=== PATIENT | female | born 1985 | race American Indian/Alaskan Native ===

== ENCOUNTER 2017-03-20 14:12 | Emergency (ER) | payer SELFPAY ==
[2017-03-20 16:25] LABS: Hematocrit 42.6 % (30.3-42.9); Hemoglobin 14.6 gm/dl (10.1-14.3); Mean Corpuscular HGB Conc 34 % (30-34); Mean Corpuscular Hemoglobin 31 pg (28-32); Mean Corpuscular Volume 90 fl (79-97); Platelet Count 270 K/mm3 (140-440); Red Blood Count 4.76 M/mm3 (3.65-5.03); Red Cell Distribution Width 13.1 % (13.2-15.2); White Blood Count 7.3 K/mm3 (4.5-11.0)
[2017-03-20 16:47] LABS: Alanine Aminotransferase 9 units/L (7-56); Albumin 4.6 g/dL (3.9-5); Albumin/Globulin Ratio 1.4 %; Alkaline Phosphatase 96 units/L (35-129); Anion Gap 17 mmol/L; Blood Urea Nitrogen 7 mg/dL (7-17); Calcium 9.7 mg/dL (8.4-10.2); Carbon Dioxide 26 mmol/L (22-30); Chloride 98.6 mmol/L (98-107); Glucose 92 mg/dL (65-100); Lipase 12 units/L (13-60); Potassium 3.9 mmol/L (3.6-5.0); Sodium 138 mmol/L (137-145); Total Protein 7.8 g/dL (6.3-8.2)
[2017-03-20 17:33] LABS: Bilirubin,Urine NEG (Negative); Blood,Urine NEG (Negative); Ketones,Urine NEG (Negative); Leukocyte Esterase,Urine NEG (Negative); Nitrite,Urine NEG (Negative); Protein,Urine <15 mg/dL mg/dL (Negative); RBC,Urine < 1.0 /HPF (0.0-6.0); Urobilinogen,Urine < 2.0 mg/dL (<2.0)
[2017-03-20 18:00] LABS: Basophils % (Manual) 0 % (0.0-1.8); Blastocytes % (Manual) 0 %; Eosinophils % (Manual) 0 % (0.0-4.3)
[2017-03-20 18:01] LABS: Diff Status Complete; Platelet Estimate Consistent w Auto; RBC Morphology Normal
[2017-03-20] MEDS ORDERED: TORADOL IM ONE (22:31)
[2017-03-20] MEDS ORDERED: PERCOCET 5/325 PO ONE (22:31)
--- NOTE | 2017-03-20 23:05 | Emergency Department Report ---
HPI - General Chief Complaint: Abdominal Pain Time Seen by Provider: 03/20/17 22:16 - HPI HPI: This is a 32-year-old Afro[place] female presents to the emergency department with complaint of right hip pain and swelling that has been going on for almost the past year intermittently. This is a chronic issue for her but when the pain is real bad she says that it causes some pain towards the abdomen and also causes diarrhea. The patient feels very confident that this is due to her hip pain. She's been taking ibuprofen 600 twice a day for this discomfort. She denies any fever, nausea, vomiting, back pain, dysuria, vaginal bleeding or discharge. She has a appointment with an STATISTICAL CONSULTANT coming up but does not have a primary care doctor as she just "moved back rate" no recent travel or sick contacts at home. She has a past surgical history of 3, tubal ligation and partial hysterectomy. ED Past Medical Hx - Past Medical History Hx Asthma: Yes - Surgical History Additional Surgical History: X 3. TUBAL LIGATION. PARTIAL HYSTERECTOMY - Social History Smoking Status: Never Smoker Substance Use Type: None - Medications Home Medications: Home Medications Medication Instructions Recorded Confirmed Last Taken Type ALBUTEROL Inhaler [ProAir HFA 2 puff IH QID PRN #1 inhalation 11/16/16 03/20/17 Unknown Rx Inhaler] HYDROcodone/APAP 5-325 [[place] 1 each PO Q6HR PRN #12 tablet 03/21/17 Unknown Rx 5/325] ED Review of Systems ROS: Stated complaint: PAIN AND SWELLING IN RT HIP Other details as noted in HPI Comment: All other systems reviewed and negative Constitutional: denies: chills, fever Eyes: denies: eye pain, eye discharge, vision change ENT: denies: ear pain, throat pain Respiratory: denies: cough, shortness of breath, wheezing Cardiovascular: denies: chest pain, palpitations Gastrointestinal: abdominal pain, diarrhea. denies: nausea, vomiting Genitourinary: denies: urgency, dysuria, discharge Musculoskeletal: joint swelling, arthralgia. denies: back pain Skin: denies: rash, lesions Neurological: denies: headache, weakness, paresthesias Physical Exam - Physical Exam Vital Signs: Vital Signs 03/20/17 03/20/17 03/20/17 15:53 21:58 21:59 Temperature 98.5 F Pulse Rate 66 74 64 Respiratory 18 17 16 Rate Blood Pressure 126/87 O2 Sat by Pulse 100 Oximetry 03/20/17 03/20/17 03/20/17 22:00 22:01 22:02 Temperature Pulse Rate 73 67 73 Respiratory 14 14 13 Rate Blood Pressure 124/65 124/65 124/65 O2 Sat by Pulse 100 100 Oximetry 03/20/17 22:11 Temperature Pulse Rate Respiratory 18 Rate Blood Pressure O2 Sat by Pulse 98 Oximetry Physical Exam: GENERAL: The patient is well-developed well-nourished. HEENT: Normocephalic. Atraumatic. Extraocular motions are intact. Patient has moist mucous membranes. Pupils equal reactive to light bilaterally. NECK: Supple. Trachea is midline. CHEST/LUNGS: Clear to auscultation. There is no respiratory distress noted. HEART/CARDIOVASCULAR: Regular. There is no tachycardia. There is no gallop rub or murmur. ABDOMEN: Abdomen is soft. Nontender to palpation. Unable to reproduce tenderness to palpation. Patient has normal bowel sounds. There is no abdominal distention. SKIN: Skin is warm and dry. NEURO: The patient is awake, alert, and oriented. The patient is cooperative. The patient has no focal neurologic deficits. The patient has normal speech. MUSCULOSKELETAL: There is tenderness to palpation to the right lateral hip as well as the circumferential right proximal thigh however there is no obvious deformity. There is no limitation range of motion. There is no evidence of acute injury. ED Course Vital Signs 03/20/17 03/20/17 03/20/17 15:53 21:58 21:59 Temperature 98.5 F Pulse Rate 66 74 64 Respiratory 18 17 16 Rate Blood Pressure 126/87 O2 Sat by Pulse 100 Oximetry 03/20/17 03/20/17 03/20/17 22:00 22:01 22:02 Temperature Pulse Rate 73 67 73 Respiratory 14 14 13 Rate Blood Pressure 124/65 124/65 124/65 O2 Sat by Pulse 100 100 Oximetry 03/20/17 22:11 Temperature Pulse Rate Respiratory 18 Rate Blood Pressure O2 Sat by Pulse 98 Oximetry ED Medical Decision Making - Lab Data Result diagrams: 03/20/17 16:03 03/20/17 16:03 - Radiology Data Radiology results: image reviewed interpreted by me: Abdominal x-ray shows nonspecific nonobstructive bowel gas. X-ray of the right hip does not show any fracture, dislocation or any acute process. - Medical Decision Making 32-year-old female presents to the emergency department with acute on chronic right hip and thigh pain. No obvious deformity seen. X-rays were done of the hip and abdomen without any acute process. Patient's labs are unremarkable. She was given a dose of pain medication and a shot of Toradol and upon reevaluation she is feeling much better. Vital signs stable throughout her ED course. She appears safe for discharge home at this time. She will be given a order to return to outpatient imaging tomorrow for a venous Doppler ultrasound of the right lower extremity. If positive, she will be redirected back to the emergency department. If negative she will continue with further evaluation and has been given referrals for primary care and an orthopedist. - Differential Diagnosis DVT, malignancy, muscle spasm, strain, colitis Critical Care Time: No Critical care attestation.: If time is entered above; I have spent that time in minutes in the direct care of this critically ill patient, excluding procedure time. ED Disposition Clinical Impression: Hip pain, right Abdominal pain Qualifiers: Abdominal location: lower abdomen, unspecified Qualified Code(s): R10.30 - Lower abdominal pain, unspecified Disposition: DISCHARGED TO HOME OR SELFCARE Is pt being admited?: No Condition: Stable Instructions: Abdominal Pain (ED), Arthralgia (ED) Additional Instructions: Please follow-up with a primary care doctor in the next few days. I have given you a referral for a local orthopedist, Dr. Patino, to follow-up regarding your hip pain. Return to the emergency department with any worsening of your symptoms or any acute distress. You've been prescribed a medication that is sedating. Therefore this medication cannot be mixed with alcohol, or taken prior to driving, working, or being responsible for children. I have given you an order to return to the outpatient imaging tomorrow to have a venous Doppler ultrasound of your right leg to rule out a blood clot. Please call the number provided to schedule your imaging. If it is positive, he will be redirected back to the emergency department. If negative we will continue with the plan of follow-up with the primary care doctor and orthopedist. Prescriptions: HYDROcodone/APAP 5-325 [[place] 5/325] 1 each PO Q6HR PRN #12 tablet PRN Reason: Pain Referrals: PRIMARY CARE, [Primary Care Provider] - 3-5 Days WILLIE PATINO MD [Staff Physician] - 3-5 Days GERRI DYSON MD [Staff Physician] - 3-5 Days HALLE LEVIN MD [Staff Physician] - 3-5 Days [facility] [Outside] - 3-5 Days Time of Disposition: 00:22
[2017-03-20 23:38] VITALS: BP 120/67
--- NOTE | 2017-03-21 09:15 | XRay Report ---
RIGHT HIP RADIOGRAPHS INDICATION: Right hip pain for 10 months. Diarrhea with blood in stool. COMPARISON: None similar. FINDINGS: An AP pelvic radiograph with frog-leg projection of the right hip demonstrate intact articulation. Imaged bilateral SI and hip joints appear intact. Nonobstructive bowel gas pattern. CONCLUSION: Normal exam. Thank you for the opportunity to participate in this patient's care.
--- NOTE | 2017-03-21 09:20 | XRay Report ---
ABDOMEN RADIOGRAPHS INDICATION: Right hip pain for 10 months. Diarrhea with blood in stool when hip swells. COMPARISON: None similar. FINDINGS: Frontal abdominal radiographs demonstrate nonobstructive bowel gas pattern. No focal suspicious calcifications, pneumatosis or pneumoperitoneum. Hepatomegaly questioned. Clear visualized lung bases. Borderline/mild cardiomegaly. Slight lumbar levoscoliosis apex about L4. CONCLUSION: No evidence of bowel obstruction though cardiomegaly and hepatomegaly not excluded. Please correlate. Thank you for the opportunity to participate in this patient's care.
== END 2017-03-21 00:45 | disposition home or self-care (01) ==
LOC: ED 14:12
DX: M25.551 Pain in right hip (principal); R10.30 Lower abdominal pain, unspecified; J45.909 Unspecified asthma, uncomplicated; Z98.51 Tubal ligation status; Z90.711 Acquired absence of uterus with remaining cervical stump
CPT/HCPCS: 36415; 73502; 74020; 80053; 81001; 83690; 85007; 85025; 96372; 99284; J1885

== ENCOUNTER 2017-03-21 10:25 | Outpatient (CLI) | payer SELFPAY | END 2017-03-21 10:26 | disposition home or self-care (01) | LOC: VAS 10:25 | PROVIDERS: ATTEND Emergency Medicine | DX: M79.661 Pain in right lower leg (principal); M79.89 Other specified soft tissue disorders ==